=== PATIENT | male | born 1960 | race Caucasian/White ===

== ENCOUNTER 2024-02-12 12:35 | Emergency (ER) | payer OTHER ==
[~2024-02-12] VITALS: Ht 190.5 cm; Wt 111.1 kg
== END 2024-02-12 15:10 | disposition home or self-care (01) ==
LOC: ER 12:35
DX: S20.212A Contusion of left front wall of thorax, initial encounter (principal); X58.XXXA Exposure to other specified factors, initial encounter
CPT/HCPCS: 71046; 99283-25